=== PATIENT | female | born 1955 | race Caucasian/White ===

== ENCOUNTER 2017-01-26 07:52 | Outpatient (CLI) | payer MEDICARE ==
[~2017-01-26] VITALS: Ht 152.4 cm; Wt 72.7 kg
--- NOTE | ~2017-01-26 | HEMODYNAMI ---
PATIENT:TAYO SIERRA MEDICAL RECORD: [id number] : 55 LOCATION:[facility] ADMISSION DATE: 01/26/17 Generatedon:01/26/201710:30 Patient name: TAYO SIERRA Patient #: [id number] SSN: : 1955 Date of study: 01/26/2017 Page: Of Hemodynamic Procedure Report Patient Data Patient Demographics Procedure consent was obtained First Name: TAYO Gender: Female Last Name: MARIELA : 1955 Middle Initial: R Age: 61 year(s) Patient #: [id number] Race: Unknown Additional ID: [id number] Contact details [address]: [address] [place] [address] State: [place] City: [place] Zip code: [address] Past Medical History Allergies Allergen Reaction Date Comments Reported Other allergy 01/26/2017 Estrogen, IV Dye, Valium, NSAIDS, Sulfa, Aspirin, Phenergan Admission Admission Data Admission Date: 01/26/2017 Admission Time: 7:52 Lab Results Lab Result Date: 01/26/2017 Lab Result Time: 0:00 Biochemistry Name Units Result Min Max BUN mg/dl 12 --(-*--)-- 7 18 Creatinine mg/dl 1.1 --(--*-)-- 0.6 1.3 CBC Name Units Result Min Max Hemoglobin g/dl 14.3 --(*---)-- 13.5 17.5 Procedure Procedure Types Cath Procedure Diagnostic Procedure Right Heart RHC and LHC w/Coronaries Miscellaneous Procedures Moderate Sedation up to 30 minutes Procedure Description Procedure Date Procedure Date: 01/26/2017 Procedure Start Time: 10:15 Procedure End Time: 10:26 Procedure Staff Name Function Andi Velasco MD Performing Physician Jocelyn Reyes RT Monitor Vandana Santiago RT Scrub Aruna Bazzi RN Nurse Procedure Data Cath Procedure Fluoroscopy Diagnostic fluoroscopy Total fluoroscopy Time: 1.2 time: 1.2 min min Diagnostic fluoroscopy Total fluoroscopy dose: 219 dose: 219 mGy mGy Contrast Material Contrast Material Type Amount (ml) Isovue 300 29 Entry Location Entry Primary Successful Side Size Upsize Upsize Entry Closure Singh ccessful Closure Location (Fr) 1 (Fr) 2 (Fr) Remarks Device Remarks Femoral Left 7 Fr Manual vein Short Compression Femoral Right 5 Fr Exoseal artery Estimated blood loss: 5 ml Diagnostic catheters Device Type Used For End Catheter Placement Lou [employer] 7Fr Pressure [place] Thermodilution rachid Measurement Cordis 5Fr Pigtail LV Angiography Catheter (MP) Cordis 5Fr JL 4.0 Left Coronary Catheter (MP) Angiography Cordis 5Fr 3DRC Catheter Right Coronary (MP) Angiography Procedure Complications No complications Procedure Medications Medication Administration Route Dosage Oxygen NC 2 l/min Lidocaine 2% added to field 20 Heparin Flush Bag added to field 2 bags (1000units/500ml NS) 0.9% NaCl I.V. 100 ml/hr Versed I.V. 1 mg Fentanyl I.V. 100 mcg Versed I.V. 1 mg Fentanyl I.V. 50 mcg Versed I.V. 1 mg Fentanyl I.V. 50 mcg Fentanyl I.V. 50 mcg Zofran I.V. 4 mg Hemodynamics Rest HGB: 14.3 (g/dl) Heart Rate: 91 (bpm) Pressure Samples Time Site Value (mmHg) Purpose Heart Use Rate(bpm) 10:19 PCW 25/23(23) Snapshot 81 10:20 PA 43/28(34) Snapshot 80 10:20 RV 43/17,21 Snapshot 66 10:20 RA 22/23(21) Snapshot 78 10:21 LV 109/23,24 Snapshot 71 Snapshots Pre Cath Intra NCS Post Cath Vital Signs Time Heart Resp SPO2 NIBP (mmHg) Rhythm Pain Sedation Rate (ipm) (%) Status Level (bpm) 10:08:10 122 20 99 129/77(103) NSR 0 (11) 10(A) , No pain 10:12:28 76 19 95 100/65(92) NSR 0 (11) 10(A) , No pain 10:16:34 88 17 97 98/66(92) NSR 0 (11) 10(A) , No pain 10:20:39 77 16 95 110/63(85) NSR 0 (11) 10(A) , No pain 10:24:49 72 15 99 114/61(87) NSR 0 (11) 9(A) , No pain 10:29:09 75 15 98 107/62(83) NSR 0 (11) 10(A) , No pain Medications Time Medication Route Dose Verified Delivered Reason Notes Effe ctiveness by by 10:08:23 Oxygen NC 2 Andi Buffie used for l/min Krista Bazzi RN procedure 10:09:52 Lidocaine 2% added 20ml Andi Andi for local to vial Krista Velasco MD anesthetic field 10:09:58 Heparin Flush added 2 Andi Andi used for Bag to bags Krista Velasco MD procedure (1000units/500ml field NS) 10:10:06 0.9% NaCl I.V. 100 Andi Buffie Per ml/hr Krista Bazzi RN physician 10:10:38 Zofran I.V. 4 mg Andi Caicedoie Per Krista Bazzi RN physician 10:14:45 Versed I.V. 1 mg Andi Buffie for Krista Bazzi RN sedation 10:14:50 Fentanyl I.V. 100 Andi Buffie for mcg Krista Bazzi RN sedation 10:16:54 Versed I.V. 1 mg Andi Buffie for Krista Bazzi RN sedation 10:16:57 Fentanyl I.V. 50 Andi Buffie for mcg Krista Bazzi RN sedation 10:19:11 Versed I.V. 1 mg Andi Buffie for Krista Bazzi RN sedation 10:19:14 Fentanyl I.V. 50 Andi Buffie for mcg Krista Bazzi RN sedation 10:21:38 Fentanyl I.V. 50 Andi Buffie for mcg Krista Bazzi RN sedation Procedure Log Time Note 9:40:41 Diagnostic Cath Status : Elective 9:41:05 Jocelyn Reyes RT(R) sent for patient. Start room use. 9:41:06 Time tracking: Regular hours 9:41:10 Plan of Care:Hemodynamics will remain stable., Cardiac rhythm will remain stable., Comfort level will be maintained., Respiratory function will remain adequate., Patient/ family verbilizes understanding of procedure., Procedure tolerated without complication., Recovers from procedure without complications.. 9:44:46 Lab Result : Creatinine 1.1 mg/dl 9:44:46 Lab Result : BUN 12 mg/dl 9:44:46 Lab Result : Hemoglobin 14.3 g/dl 10:04:50 Patient received from Pre/Post Procedure Room to CCL 2 Alert and oriented. Tansferred to table in Supine position. 10:04:51 Warm blankets applied, and ruby hugger turned on for patient comfort. 10:04:51 Correct patient and procedure confirmed by team. 10:04:53 Signed procedure consent form obtained from patient. 10:04:54 ECG and BP/O2 sat monitors applied to patient. 10:07:08 Vital chart was started 10:07:09 Baseline sample Acquired. 10:07:12 Rhythm: sinus rhythm 10:07:14 Full Disclosure recording started 10:07:36 H&P Date Dictated: 01/05/2017 Within 30 days and on chart., H&P Addendum completed by physician on day of procedure. (MUST COMPLETE FOR ALL OUTPATIENTS). 10:07:38 Pre-procedure instructions explained to patient. 10:07:38 Pre-op teaching completed and patient verbalized understanding. 10:07:39 Family in waiting room. 10:07:41 Patient NPO since Midnight. 10:08:23 Oxygen 2 l/min NC was administered by Aruna Bazzi RN; used for procedure; 10:09:52 Lidocaine 2% 20ml vial added to field was administered by Andi Velasco MD; for local anesthetic; 10:09:58 Heparin Flush Bag (1000units/500ml NS) 2 bags added to field was administered by Andi Velasco MD; used for procedure; 10:10:06 0.9% NaCl 100 ml/hr I.V. was administered by Aruna Bazzi RN; Per physician; 10:10:21 Patient allergic to Other allergyEstrogen, IV Dye, Valium, NSAIDS, Sulfa, Aspirin, Phenergan 10:10:24 Is the patient allergic to Iodine/contrast media? Yes. 10:10:25 Was the patient premedicated? Yes 10:10:26 Is patient on blood thinner?Yes 10:10:29 ACC The patient was administered the following blood thiners within the last 24 hours: ACCPlavix 10:10:31 Patient diabetic? No. 10:10:34 Previous problem with sedation/anesthesia? No ? 10:10:36 Snore? Yes 10:10:37 Sleep apnea? No 10:10:38 Zofran 4 mg I.V. was administered by Aruna Bazzi RN; Per physician; 10:10:38 Deviated septum? No 10:10:40 Opens mouth fully? Yes 10:10:40 Sticks out tongue? Yes 10:10:42 Airway obstruction? No ? 10:10:51 Dentures? Yes in tight 10:10:58 Pre procedure: right dorsailis pedis pulse 2+ Normal; easily identifiable; not easily obliterated 10:11:00 Pre procedure: left dorsailis pedis pulse 2+ Normal; easily identifiable; not easily obliterated 10:11:02 Patient pain scale 0/10 ?. 10:11:09 IV patent on arrival in left forearm with 0.9% NaCl at [facility]. 10:11:11 Lab results completed and on chart. 10:11:16 Right groin area was prepped with chlora-prep and draped in sterile fashion 10:11:17 Alarms reviewed by R. N. 10:11:17 Sharps counted by scrub and verified by R.N. 10:11:19 Physician arrived 10:11:19 --------ALL STOP TIME OUT------ 10:11:20 Final Timeout: patient, procedure, and site verified with staff and physician. All members of the team are in agreement. 10:11:21 Right groin site verified by team. 10:11:24 Physical assessment completed. ASA score P 2 - A patient with mild systemic disease as per Andi Velasco MD. 10:11:28 Sedation plan: IV Moderate Sedation Medication:Versed, Fentanyl 10:11:35 Use device set Femoral Dx 10:11:41 Acist Syringe opened to sterile field. 10:11:42 Bag Decanter opened to sterile field. 10:11:42 Medline Cath Pack opened to sterile field. 10:11:44 Terumo 5Fr Laverne Sheath opened to sterile field. 10:11:46 [place] 260cm J .035 wire opened to sterile field. 10:11:47 Acist Hand Control opened to sterile field. 10:11:48 Acist Manifold opened to sterile field. 10:11:49 Diagnostic Infinity 5Fr Multipack catheter opened to sterile field. 10:11:50 Tegaderm 4 x 4 opened to sterile field. 10:12:13 Terumo 7Fr Laverne Sheath opened to sterile field. 10:14:45 Versed 1 mg I.V. was administered by Aruna Bazzi RN; for sedation; 10:14:50 Fentanyl 100 mcg I.V. was administered by Aruna Bazzi RN; for sedation; 10:15:06 Procedure started. 10:15:18 Local anesthetic to right femoral vein with Lidocaine 2% by Andi Velasco MD.INITIAL ACCESS ONLY 10:15:21 Local anesthetic to right femoral artery with Lidocaine 2% by Andi Velasco MD.ADDITIONAL ACCESS 10:15:58 A 7 Fr Short sheath was inserted into the Left Femoral vein 10:16:29 A 5 Fr sheath was inserted into the Right Femoral artery 10:16:54 Versed 1 mg I.V. was administered by Aruna Bazzi RN; for sedation; 10:16:57 Fentanyl 50 mcg I.V. was administered by Aruna Bazzi RN; for sedation; 10:18:03 Baseline sample Acquired. 10:18:29 Zero performed for pressure channel P1 10:18:35 Zero performed for pressure channel P1 10:18:42 Zero performed for pressure channel P1 10:18:49 Zero performed for pressure channel P1 10:18:58 Zero performed for pressure channel P1 10:19:11 Versed 1 mg I.V. was administered by Aruna Bazzi RN; for sedation; 10:19:14 Fentanyl 50 mcg I.V. was administered by Aruna Bazzi RN; for sedation; 10:19:19 A [employer] 7Fr [place] Thermodilution rachid was advanced over the wire and used for Pressure Measurement. 10:21:01 Right heart pressures and cardiac output were obtained. 10:21:02 [place]-Teresa removed. 10:21:17 A Cordis 5Fr Pigtail Catheter (MP) was advanced over the wire and used for LV Angiography. 10:21:26 LV hemodynamics recorded. 10:21:27 LV gram done using ABDALLA 10::29 Injector settings: Ml/sec: 5, Volume: 15, 10:21:34 EF : 60 % 10:21:38 Fentanyl 50 mcg I.V. was administered by Aruna Bazzi RN; for sedation; 10:21:39 Catheter removed. 10:21:45 A Cordis 5Fr JL 4.0 Catheter (MP) was advanced over the wire and used for Left Coronary Angiography. 10:22:12 LCA angiography performed. 10:22:17 Injector settings: Ml/sec: 3, Volume: 6, 10:22:32 Catheter removed. 10:22:40 A Cordis 5Fr 3DRC Catheter (MP) was advanced over the wire and used for Right Coronary Angiography. 10:23:00 RCA angiography performed. 10:23:04 Injector settings: Ml/sec: 3, Volume: 6, 10:23:05 Catheter removed. 10:23:16 Cordis 5Fr Exoseal opened to sterile field. 10:23:33 Sheath removed intact; hemostasis achieved with Exoseal to the Right Femoral artery. 10:24:20 Sheath removed intact; hemostasis achieved with Manual Compression to the Left Femoral vein. 10:24:22 Procedure ended.(Physican Out) 10:25:03 Fluoroscopy time 01.20 minutes. 10:25:08 Fluoroscopy dose: 219 mGy 10:25:08 Flurop Dose total: 219 10:25:18 Contrast amount:Isovue 300 29ml. 10:25:19 Sharps counted by scrub and verified by R.N. 10:25:20 Insertion/operative site no bleeding no hematoma. 10:25:23 Post-op/insertion site Right Femoral artery dressed using a 4 x 4 and Tegaderm. 10:25:28 Post procedure rhythm: unchanged. 10:25:30 Estimated blood loss: 5 ml 10:25:34 Post procedure instruction explained to patient.Patient verbalizes understanding. 10:25:35 Patient needs reinforcement of post procedure teaching. 10:25:52 Procedure type changed to Cath procedure, Diagnostic procedure, Right Heart, RHC and LHC w/Coronaries, Miscellaneous Procedures, Moderate Sedation up to 30 minutes 10:25:54 Procedure and supply charges have been captured, reviewed, submitted and are correct. 10:25:58 Procedure Complication : No complications 10:26:00 Vital chart was stopped 10:26:01 See physician's report for complete and final results. 10:26:05 Report given to Pre/Post Procedure Room. 10:26:07 Patient transfered to Pre/Post Procedure Room with Stretcher. 10:26:09 Procedure ended. 10:26:09 Full Disclosure recording stopped 10:26:15 End room use (Document Last) Device Usage Item Name Manufacture Quantity Catalog Hospital Part Current Minima l Lot# / Number Charge Number Stock Stock Serial# Code Acist Syringe Acist 1 20737 114573 125086 683699 20 [employer] Bag Decanter Microtek 1 2002S 579754 36482 179584 5 Medical Inc. Medline Cath Cardinal 1 [id number] 684059 74416 633656 5 Pack Health Terumo 5Fr Terumo 1 [id number] 454048 466451 970681 [address] [place] Mag[place] 1 [id number] 876338 594868 288370 30 J .035 wire Acist Hand Acist 1 15284 627285 021626 621935 5 Control [employer] Inc Acist Manifold Acist 1 96588 105841 959905 991019 5 Medical Systems Inc Diagnostic Cardinal 1 [id number] 428768 57562 884134 30 Infinity 5Fr Health Multipack catheter Tegaderm 4 x 4 3M 1 [id number] 380917 218930 921948 5 Terumo 7Fr Terumo 1 [id number] 134607 447945 923785 5 Laverne Sheath Lou Lou 1 [id number] 846044 49385 028636 3 Lifesciences Lifesciences 7Fr [place] Thermodilution rachid Cordis 5Fr Cardinal 1 [id number] 5 Pigtail Health Catheter (MP) Cordis 5Fr JL Cardinal 1 [id number] 5 4.0 Catheter Health (MP) Cordis 5Fr Cardinal 1 209458 5 3DRC Catheter Health (MP) Cordis 5Fr Cardinal 1 EX500 062789 049564 485564 10 [facility] Signature Audit [place] Stage Time Signature Unsigned Intra-Procedure 01/26/2017 Jocelyn Reyes 10:30:46 AM RT(R) Signatures Monitor : Jocelyn Reyes RT Signature : Date : Time : [facility] [address] [place] [address]
[~2017-01-26 07:52] MED LIST: K-DUR20 MEQ PO; LASIX40 MG PO; NEXIUM40 MG PO; NORCO 7.5/325 T1 TA1 PO; PROAIR HFA8.5 GM INH; TOPROL XL25 MG PO; ZYRTEC10 MG PO
[2017-01-26] MEDS ORDERED: XELJANZ5 MG PO (08:31)
[2017-01-26] MEDS ORDERED: PREDNISONE20 MG PO (08:32)
[2017-01-26] MEDS ORDERED: ALBUTEROL0.63 MG/3 INH (08:33)
[2017-01-26] MEDS ORDERED: ALDACTONE25 MG PO (08:33)
[2017-01-26 08:41] VITALS: BP 129/72; Ht 152.4 cm; Wt 72.7 kg
[2017-01-26 09:00] LABS: ANION GAP 17.6 mmol/L (8-16); CALCIUM 9.2 mg/dL (8.5-10.1); CARBON DIOXIDE 23.5 mmol/L (21.0-32.0); CREATININE - SERUM 1.1 mg/dL (0.6-1.3); POTASSIUM - SERUM 4.1 mmol/L (3.5-5.1)
[2017-01-26 09:04] LABS: BASOPHILS 0 % (0-2); EOSINOPHILS 0 % (0-7); HEMATOCRIT 42.7 % (36.0-48.0); HEMOGLOBIN 14.3 g/dL (12-16); IMMATURE GRANULOCYTES 0.2 % (0-5); LYMPHOCYTES 6.3 % (15-50); MCH 30.9 pg (26.0-34.0); MCHC 33.5 g/dL (31.0-37.0); MCV 92.2 fL (80.0-100.0); MEAN PLATELET VOLUME 9.5 fL (7.4-10.4); MONOCYTES 2.4 % (2-11); NEUTROPHILS 91.1 % (40-80); RBC 4.63 10x6/uL (4.00-5.40)
[2017-01-26 09:10] LABS: PLATELET COUNT 355 10x3/uL (130-400)
--- NOTE | 2017-01-26 10:40 | NUR ---
1040 RECIEVED TO ROOM VIA STRETCHER FROM WORKERS COMPENSATION CLAIMS SPECIALIST WITH REPORTS OF RHC WITH NO INTERVENTION AT THIS TIME. 5 FR EXOSEAL R/GROIN CDI NO BLEEDING NO HEMATOMA NOTED. INSTRUCTED PATIENT TO KEEP HEAD FLAT ON PILLOW WITH RLE STRIAGHT. VSS
--- NOTE | 2017-01-26 11:00 | NUR ---
RIGHT GROIN 5F EXOSEAL CDI, NO BLEEDING OR HEMATOMA NOTED. NO C/O PAIN OR NAUSEA. VSS. WILL CONTINUE TO MONITOR.
--- NOTE | 2017-01-26 11:30 | NUR ---
1130 DRESSING RIGHT GROIN IS CDI, AREA SOFT AND NONTENDER. PEDAL PULSES PALPABLE, PT DENIES ANY C/O AT THIS TIME. FAMILY AT BEDSIDE. VSS.
--- NOTE | 2017-01-26 12:00 | NUR ---
1200 DRESSING RIGHT GROIN IS CDI, AREA SOFT AND NONTENDER. PEDAL PULSES PALPABLE. PT DENIES ANY C/O.
--- NOTE | 2017-01-26 12:29 | NUR ---
1215 HOB ELEVATED, SANDWICH AND PO FLUIDS SERVED. PT DENIES ANY C/O. DRESSING RIGHT GROIN IS CDI, AREA SOFT AND NONTENDER. PEDAL PULSES PALPABLE.
--- NOTE | 2017-01-26 12:30 | NUR ---
PT HAS MARQUIS PO INTAKE WTIH NO C/O NAUSEA. IV DC'D WITH CATH INTACT, PT DRESSING FOR DC TO HOME.
--- NOTE | 2017-01-26 12:46 | NUR ---
1240 PT HAS DRESSED FOR DC TO HOME. HAS VOIDED QS. DRESSING REMAINS CDI. PT DENIES ANY C/O. DC INSTRUCTIONS REVIEWED WITH PT WHO VERBALIZES UNDERSTANDING. PT ESCORTED TO PRIVATE AUTO VIA WC BY NURSE WITH BROTHER TRISTINNG HER HOME.
--- NOTE | 2017-02-09 12:17 | OP ---
PATIENT NAME: TAYO SIERRA MEDICAL RECORD: [id number] :55 LOCATION:[facility] ADMISSION DATE: SURGEON: CHASTITY ARGUETA MD DATE OF OPERATION: 01/26/2017 PROCEDURES: 1. Right heart catheterization. 2. Left heart catheterization. 3. Selective coronary angiography. 4. Left ventriculogram. INDICATION: Chest pain, shortness of breath, dyspnea on exertion. PROCEDURE IN DETAIL: After informed consent was obtained and after a detailed explanation of the risks, benefits as well as alternative therapies, the patient elected to proceed with angiogram and heart catheterization. The right femoral area was prepped and draped in normal sterile fashion. The right femoral artery was cannulated via modified Seldinger technique with placement of 5-Swazi sheath. Right femoral vein was cannulated via modified Seldinger technique with placement of a 7-Swazi sheath. All catheters exchanged through this sheath. FINDINGS: Left ventriculogram was performed in standard 30-degree ABDALLA view, reveals good cardiac wall motion throughout all segments. Overall ejection fraction estimated at 60%. No significant mitral regurgitation. HEMODYNAMICS: Pulmonary artery pressure 38/18. Right ventricular pressure 40/18. Right atrial mean pressure 17. Pulmonary capillary wedge 20. No gradient across the aortic valve. Left ventricular pressure 128/10. Aortic pressure 128/70. SELECTIVE CORONARY ANGIOGRAPHY: Left main, left anterior descending, left circumflex, and right coronary artery were all smooth-walled vessels with no angiographic evidence of coronary artery disease. OVERALL IMPRESSION: 1. No angiographic evidence of coronary artery disease. 2. Normal left ventricular systolic function, normal right heart pressures. Symptomatology is not secondary to heart failure or ischemic heart disease. No other cardiac workup or treatment is necessary. TRANSINT:[id number] Voice Confirmation ID: [id number] DOCUMENT ID: [id number] CHASTITY ARGUETA MD at 1217 CC: [id number] DICTATION DATE: 01/26/17 1027 BUSINESS EMPLOYMENT SPECIALIST: 01/26/17 1343 DEP CLI 01/26/[address] [id number]
== END 2017-01-26 12:40 | disposition home or self-care (01) ==
LOC: D.CATH 07:52
PROVIDERS: Internal Medicine Interventional Cardiology
DX: I20.9 Angina pectoris, unspecified (principal); R06.02 Shortness of breath; I10 Essential (primary) hypertension; Z01.812 Encounter for preprocedural laboratory examination